=== PATIENT | female | born 1975 | race Caucasian/White ===

== ENCOUNTER → 2022-03-11 | Day surgery (SDC) | payer OTHER | LOC: MAMMO 06:44 | PROVIDERS: ATTEND Obstetrics & Gynecology | PROC: 0H9T3ZX Drainage of Right Breast, Percutaneous Approach, Diagnostic (ICD-10-PCS; principal; 2022-03-11) | DX: N60.81 Other benign mammary dysplasias of right breast (principal); N60.11 Diffuse cystic mastopathy of right breast; N60.21 Fibroadenosis of right breast | CPT/HCPCS: 19081; 76098; 88305 ==